=== PATIENT | female | born 1975 | race American Indian/Alaskan Native ===

== ENCOUNTER 2022-01-20 14:00 | Emergency (ER) | payer SELFPAY ==
--- NOTE | 2022-01-20 16:40 | Emergency Department Report ---
ED General Adult HPI - General Chief complaint: Dental/Oral Stated complaint: EAR/MOUTHACHE/CYST Time Seen by Provider: 01/20/22 15:26 Source: patient Mode of arrival: Ambulatory Limitations: No Limitations - History of Present Illness Initial comments: PT is a 47-year-old female with history of hypertension and chronic dental caries. Patient presents for dental and ear pain for 1 week states right lower jaw swelling x5 days. Patient states she went to urgent care center and was prescribed amoxicillin for dental abscess. Patient has not seen dentist patient denies fevers or chills. Does endorse 8/10 right lower jaw pain exacerbated by eating and chewing. There is no shortness of breath no wheezing or stridor. Pain radiates from right jaw to right ear. Patient denies mastoid tenderness. Patient drove self to ED patient is alert oriented x3 and ambulatory with steady gait. Today is the patient's birthday and advises she needs to be discharged home to go home and eat birthday cake. - Related Data Previous Rx's Medication Instructions Recorded Last Taken Type Acetaminophen [Acetaminophen TAB] 1,000 mg PO Q6HR PRN #30 tablet 01/20/22 Unknown Rx Clindamycin [Clindamycin CAP] 300 mg PO Q6H 7 Days #28 cap 01/20/22 Unknown Rx amLODIPine 10 mg PO DAILY #30 tab 01/20/22 Unknown Rx dexAMETHasone [Decadron] 4 mg PO BID 5 Days #10 tablet 01/20/22 Unknown Rx Allergies Allergy/AdvReac Type Severity Reaction Status Date / Time No Known Allergies Allergy Verified 01/20/22 17:20 ED Review of Systems ROS: Stated complaint: EAR/MOUTHACHE/CYST Other details as noted in HPI Constitutional: denies: chills, fever Eyes: denies: eye pain, eye discharge, vision change ENT: ear pain, dental pain. denies: throat pain Respiratory: denies: cough, shortness of breath, wheezing Cardiovascular: denies: chest pain, palpitations Endocrine: no symptoms reported Gastrointestinal: denies: abdominal pain, nausea, vomiting, diarrhea Genitourinary: denies: urgency, dysuria, discharge Musculoskeletal: denies: back pain, joint swelling, arthralgia Skin: denies: rash, lesions Neurological: denies: headache, weakness, paresthesias, vertigo Psychiatric: as per HPI Hematological/Lymphatic: denies: easy bleeding, easy bruising ED Past Medical Hx - Past Medical History Hx Hypertension: Yes Hx Diabetes: Yes - Surgical History Past Surgical History?: No - Social History Smoking Status: Never Smoker - Medications Home Medications: Home Medications Medication Instructions Recorded Confirmed Last Taken Type Acetaminophen [Acetaminophen TAB] 1,000 mg PO Q6HR PRN #30 tablet 01/20/22 Unknown Rx Clindamycin [Clindamycin CAP] 300 mg PO Q6H 7 Days #28 cap 01/20/22 Unknown Rx amLODIPine 10 mg PO DAILY #30 tab 01/20/22 Unknown Rx dexAMETHasone [Decadron] 4 mg PO BID 5 Days #10 tablet 01/20/22 Unknown Rx ED Physical Exam - General Limitations: No Limitations General appearance: alert, in no apparent distress - Head Head exam: Present: normocephalic, normal inspection - Eye Eye exam: Present: PERRL, EOMI Pupils: Present: normal accommodation - ENT ENT exam: Present: mucous membranes moist, TM's normal bilaterally, normal external ear exam - Expanded ENT Exam Expanded Ear exam: Present: normal external inspection Mouth exam: Present: drooling, tongue normal (Mild tongue swelling no erythema no drainage). Absent: trismus, muffled voice, tongue elevation, laceration Teeth exam: Present: dental caries, dental tenderness # (Right elbow 30 mild gum swelling no focal abscess no focal erythema) Throat exam: Positive: tonsillar erythema, other (Uvula midline no lesions no exudate). Negative: tonsillomegaly, tonsillar exudate, R peritonsillar mass, L peritonsillar mass - Neck Neck exam: Present: tenderness, full ROM, lymphadenopathy (Right submandibular and anterior auricle lymph). Absent: meningismus, thyromegaly - Expanded Neck Exam Expanded Neck exam: Present: tenderness (As above). Absent: midline deformity, thyroid mass, carotid bruit, tracheal deviation - Respiratory Respiratory exam: Present: normal lung sounds bilaterally, chest wall tenderne ss. Absent: wheezes, stridor - Cardiovascular Cardiovascular Exam: Present: regular rate, normal rhythm, normal heart sounds. Absent: systolic murmur, diastolic murmur, rubs, gallop - GI/Abdominal GI/Abdominal exam: Present: soft, normal bowel sounds. Absent: distended, tenderness - Rectal Rectal exam: Present: deferred - Extremities Exam Extremities exam: Present: normal inspection, full ROM, normal capillary refill - Back Exam Back exam: Present: normal inspection, full ROM - Neurological Exam Neurological exam: Present: alert, oriented X3, CN II-XII intact - Expanded Neurological Exam Expanded Patient oriented to: Present: person, place, time Speech: Present: fluid speech Cranial nerves: Tongue Deviation: Normal, Facial Sensation: Normal Best Eye Response ([place]): (4) open spontaneously Best Motor Response ([place]): (6) obeys commands Best Verbal Response ([place]): (5) oriented [place] Total: 15 - Psychiatric Psychiatric exam: Present: normal affect, normal mood - Skin Skin exam: Present: warm, dry, intact, normal color. Absent: rash ED Course Vital Signs 01/20/22 01/20/22 15:12 18:29 Temperature 98.5 F Pulse Rate 88 100 H Respiratory 20 Rate Blood Pressure 219/136 228/115 O2 Sat by Pulse 97 Oximetry ED Medical Decision Making - Lab Data Result diagrams: 01/20/22 16:38 01/20/22 16:38 - Radiology Data Radiology results: report reviewed, image reviewed CT NECK WITHOUT CONTRAST HISTORY: Swelling in the face COMPARISON: None. TECHNIQUE: Routine CT of the neck is performed without intravenous contrast. All CT scans at this location are performed using CT dose reduction for ALARA by means of automated exposure control CONTRAST: None FINDINGS: Salivary glands: Submandibular glands: Right submandibular gland is markedly enlarged; 2 large calculi measuring 14 mm and 8 mm near the hilum of the right submandibular gland; smaller calculus measuring 5 mm in the submandibular gland; calculus in the right Warthin's duct measuring 5 mm; left submandibular gland: No radiopaque calculi; however, the hilum, approximately a centimeter sized low attenuation area Parotid glands: Both parotid glands appear normal in this nonenhanced scan Sublingual space: Normal Oral cavity to the right submandibular gland is enlarged, there is suggestion of larger mass effect. Enlarged soft tissue straddling the glossal tonsillar sulcus; right faucial tonsil appears prominent Skull Base: No significant abnormality. Carotid, Retropharyngeal, Prevertebral, Pharyngeal Mucosal, and Tactical Air Control Party Spaces: No abnormal mass, enhancing lesion or other significant abnormality. Airway: Displaced towards the left side in the lower cavity but patent Lymphatics: Difficulty evaluate in this nonenhanced series; however, level 2 enlarged lymph nodes bilaterally probably reactive nodes Vasculature: No significant abnormality. Osseous Structures: Post postsurgical changes in the mandible bilaterally with corrective osteotomies Additional findings: None. IMPRESSION: Right submandibular gland is markedly enlarged due to large calculi; right Warthin's duct calculus There appears to be larger mass effect in the oral cavity with soft tissue straddling the right glossal tympanic sulcus with enlarged right faucial tonsil; this has to be evaluated further with contrast enhanced CT scan Signer Name: Tara Bradford MD Signed: 01/20/2022 8:25 PM Workstation Name: [id number] Transcribed By: BS Dictated By: Tara Garcia MD Electronically Authenticated By: Tara Garcia MD Signed Date/Time: 01/20/222024 DD/ 14 TD/TT: - Medical Decision Making PT is a 47-year-old female with history of hypertension and chronic dental caries. Patient presents for dental and ear pain for 1 week states right lower jaw swelling x5 days. Patient states she went to urgent care center and was prescribed amoxicillin for dental abscess. Patient has not seen dentist patient denies fevers or chills. Does endorse 8/10 right lower jaw pain exacerbated by eating and chewing. There is no shortness of breath no wheezing or stridor. Pain radiates from right jaw to right ear. Patient denies mastoid tenderness. Patient drove self to ED patient is alert oriented x3 and ambulatory with steady gait. Today is the patient's birthday and advises she needs to be discharged home to go home and eat birthday cake. BP is improved, there is no headache, no dizziness, no lightheadedness, no shortness of breath, no chest pain, patient is alert oriented x3 and with no acute distress patient is ambulatory with steady gait. Labs noted above, hypertension is chronic in this patient as well as elevated creatinine per patient. Patient is voiding without difficulty. Patient has primary care who is managing hypertension. CT scan soft tissue neck pending. Patient treated with Clindamycin IV piggyback, Decadron, and hydralazine. Patient will be DC'd to home with BP prescription for amlodipine, clindamycin, Decadron, Tylenol as n eeded pain, patient will follow-up with ear nose and throat doctor in 2 days, dentist in 2 days, primary care for blood pressure management as scheduled. There are no fevers no chills no nausea vomiting patient is tolerating p.o. intake. Patient verbalized agreement and understanding with discharge plan. Patient care is signed out to RM colleague will follow CT Soft tissue neck and dispo patient after result. Patient verbalized agreement and understanding with same. Patient advises that she will not even discuss possibility of ENT consult or admission as she is going home and will follow-up outpatient if necessary. Critical care attestation.: If time is entered above; I have spent that time in minutes in the direct care of this critically ill patient, excluding procedure time. ED Disposition Clinical Impression: Sialadenitis, Neck pain Disposition: HOME / SELF CARE / HOMELESS Is pt being admited?: No Does the pt Need Aspirin: No Condition: Stable Instructions: Salivary Gland Infection, Dental Abscess Additional Instructions: Take medications as prescribed, use hard candy, lemon juice or lemon glycerin swabs as directed., follow-up with your dentist as scheduled. Follow-up with ear nose and throat doctor in 2 to 3 days. Return to emergency department should symptoms worsen. Prescriptions: Acetaminophen [Acetaminophen TAB] 1,000 mg PO Q6HR PRN #30 tablet PRN Reason: pain amLODIPine 10 mg PO DAILY #30 tab Clindamycin [Clindamycin CAP] 300 mg PO Q6H 7 Days #28 cap dexAMETHasone [Decadron] 4 mg PO BID 5 Days #10 tablet Referrals: [facility] [Outside] - 3-5 Days FELIPE MERAZ MD [Referring] - 2-3 Days JENNIFER HUITRON MD [Staff Physician] - 3-5 Days Forms: Work/School Release Form(ED)
[2022-01-20 16:58] LABS: Basophils # (Auto) 0.1 K/mm3 (0.0-0.1); Basophils % (Auto) 0.6 % (0.0-1.8); Eosinophils # (Auto) 0.1 K/mm3 (0.0-0.4); Eosinophils % (Auto) 0.8 % (0.0-4.3); Hematocrit 41.8 % (30.3-42.9); Hemoglobin 13.7 gm/dl (10.1-14.3); Lymphocytes # (Auto) 1.1 K/mm3 (1.2-5.4); Lymphocytes % (Auto) 7.3 % (13.4-35.0); Mean Corpuscular HGB Conc 33 % (30-34); Mean Corpuscular Volume 88 fl (79-97); Monocytes % (Auto) 6.8 % (0.0-7.3); Platelet Count 210 K/mm3 (140-440); Red Blood Count 4.73 M/mm3 (3.65-5.03); Red Cell Distribution Width 14.1 % (13.2-15.2)
[2022-01-20 17:30] LABS: Albumin 4.3 g/dL (3.9-5); Calcium 10.4 mg/dL (8.4-10.2)
[2022-01-20] MEDS ORDERED: SODIUM CHLORIDE 0.9% 1000 ML 1,000 ML IV ONE (17:42)
[2022-01-20] MEDS: dexAMETHasone 20 MG/5 ML VIAL IV ONE (18:02)
[2022-01-20] MEDS ORDERED: hydrALAZINE 25 MG TAB PO ONE (18:20)
[2022-01-20 18:30] VITALS: BP 228/115
--- NOTE | 2022-01-20 20:30 | Cat Scan Report ---
CT NECK WITHOUT CONTRAST HISTORY: Swelling in the face COMPARISON: None. TECHNIQUE: Routine CT of the neck is performed without intravenous contrast. All CT scans at [facility] are performed using CT dose reduction for ALARA by means of automated exposure control CONTRAST: None FINDINGS: Salivary glands: Submandibular glands: Right submandibular gland is markedly enlarged; 2 large calculi measuring 14 mm and 8 mm near the hilum of the right submandibular gland; smaller calculus measuring 5 mm in the sub mandibular gland; calculus in the right Warthin's duct measuring 5 mm; left submandibular gland: No r adiopaque calculi; however, the hilum, approximately a centimeter sized low attenuation area Parotid glands: Both parotid glands appear normal in this nonenhanced scan Sublingual space: Normal Oral cavity to the right submandibular gland is enlarged, there is suggestion of larger mass effect. Enlarged soft tissue straddling the glossal tonsillar sulcus; right faucial tonsil appears prominent Skull Base: No significant abnormality. Carotid, Retropharyngeal, Prevertebral, Pharyngeal Mucosal, and Leaf Coverer Spaces: No abnormal mass, enhancing lesion or other significant abnormality. Airway: Displaced towards the left side in the lower cavity but patent Lymphatics: Difficulty evaluate in this nonenhanced series; however, level 2 enlarged lymph nodes alexandra aterally probably reactive nodes Vasculature: No significant abnormality. Osseous Structures: Post postsurgical changes in the mandible bilaterally with corrective osteotomies Additional findings: None. IMPRESSION: Right submandibular gland is markedly enlarged due to large calculi; right Warthin's duct calculus There appears to be larger mass effect in the oral cavity with soft tissue straddling the right glos esme tympanic sulcus with enlarged right faucial tonsil; this has to be evaluated further with contras t enhanced CT scan Signer Name: Tara Bradford MD Signed: 01/20/2022 8:25 PM Workstation Name: [id number]
--- NOTE | 2022-01-20 20:53 | Emergency Department Report ---
HPI - General Chief Complaint: Dental/Oral Time Seen by Provider: 01/20/22 15:26 ED Past Medical Hx - Past Medical History Hx Hypertension: Yes Hx Diabetes: Yes - Surgical History Past Surgical History?: No - Social History Smoking Status: Never Smoker - Medications Home Medications: Home Medications Medication Instructions Recorded Confirmed Last Taken Type Acetaminophen [Acetaminophen TAB] 1,000 mg PO Q6HR PRN #30 tablet 01/20/22 Unknown Rx Clindamycin [Clindamycin CAP] 300 mg PO Q6H 7 Days #28 cap 01/20/22 Unknown Rx amLODIPine 10 mg PO DAILY #30 tab 01/20/22 Unknown Rx dexAMETHasone [Decadron] 4 mg PO BID 5 Days #10 tablet 01/20/22 Unknown Rx ED Review of Systems ROS: Stated complaint: EAR/MOUTHACHE/CYST Other details as noted in HPI Constitutional: denies: chills, fever Eyes: denies: eye pain, eye discharge, vision change ENT: ear pain, dental pain. denies: throat pain Respiratory: denies: cough, shortness of breath, wheezing Cardiovascular: denies: chest pain, palpitations Endocrine: no symptoms reported Gastrointestinal: denies: abdominal pain, nausea, vomiting, diarrhea Genitourinary: denies: urgency, dysuria, discharge Musculoskeletal: denies: back pain, joint swelling, arthralgia Skin: denies: rash, lesions Neurological: denies: headache, weakness, paresthesias, vertigo Psychiatric: as per HPI Hematological/Lymphatic: denies: easy bleeding, easy bruising Physical Exam - Physical Exam Vital Signs: Vital Signs 01/20/22 01/20/22 15:12 18:29 Temperature 98.5 F Pulse Rate 88 100 H Respiratory 20 Rate Blood Pressure 219/136 228/115 O2 Sat by Pulse 97 Oximetry ED Course Vital Signs 01/20/22 01/20/22 15:12 18:29 Temperature 98.5 F Pulse Rate 88 100 H Respiratory 20 Rate Blood Pressure 219/136 228/115 O2 Sat by Pulse 97 Oximetry ED Medical Decision Making - Lab Data Result diagrams: 01/20/22 16:38 01/20/22 16:38 - Radiology Data [facility] [address] [place] [address] Cat Scan Report Signed Patient: BENITA FERNANDEZ MR#: [id number] : 1975 Acct:[id number] Age/Sex: 47 / F ADM Date: 01/20/22 Loc: ED Attending Dr: Ordering Physician: GUMARO MEJIA NP Date of Service: 01/20/22 Procedure(s): CT neck wo con Accession Number(s): [id number] cc: GUMARO MEJIA NP CT NECK WITHOUT CONTRAST HISTORY: Swelling in the face COMPARISON: None. TECHNIQUE: Routine CT of the neck is performed without intravenous contrast. All CT scans at this location are performed using CT dose reduction for ALARA by means of automated exposure control CONTRAST: None FINDINGS: Salivary glands: Submandibular glands: Right submandibular gland is markedly enlarged; 2 large calculi measuring 14 mm and 8 mm near the hilum of the right submandibular gland; smaller calculus measuring 5 mm in the submandibular gland; calculus in the right Warthin's duct measuring 5 mm; left submandibular gland: No radiopaque calculi; however, the hilum, approximately a centimeter sized low attenuation area Parotid glands: Both parotid glands appear normal in this nonenhanced scan Sublingual space: Normal Oral cavity to the right submandibular gland is enlarged, there is suggestion of larger mass effect. Enlarged soft tissue straddling the glossal tonsillar sulcus; right faucial tonsil appears prominent Skull Base: No significant abnormality. Carotid, Retropharyngeal, Prevertebral, Pharyngeal Mucosal, and Recyclable Products Sorter Spaces: No abnormal mass, enhancing lesion or other significant abnormality. Airway: Displaced towards the left side in the lower cavity but patent Lymphatics: Difficulty evaluate in this nonenhanced series; however, level 2 enlarged lymph nodes bilaterally probably reactive nodes Vasculature: No significant abnormality. Osseous Structures: Post postsurgical changes in the mandible bilaterally with corrective osteotomies Additional findings: None. IMPRESSION: Right submandibular gland is markedly enlarged due to large calculi; right Warthin's duct calculus There appears to be larger mass effect in the oral cavity with soft tissue st raddling the right glossal tympanic sulcus with enlarged right faucial tonsil; this has to be evalu ated further with contrast enhanced CT scan Signer Name: Tara Bradford MD Signed: 01/20/2022 8:25 PM Workstation Name: [id number] Transcribed By: DESTINEE Dictated By: Tara Garcia MD Electronically Authenticated By: Tara Garcia MD Signed Date/Time: 01/20/222024 DD/ 14 TD/TT: - Medical Decision Making Disposition for patient. CT results - Right submandibular gland is markedly enlarged due to large c alculi; right Warthin's duct calculus There appears to be larger mass effect in the oral cavity with soft tissue straddling the right glossal tympanic sulcus with enlarged right faucial tonsil; this has to be evaluated further with contrast enhanced CT scan. Patient states that she does not want to stay for repeat CT scan with contrast patient states that she was just follow-up outpatient and reported to the ER symptoms get worse. Patient has been evaluated by initial RM and plan of care has been given to the patient already. Patient has been educated extensively on the importance of following up if symptoms not to get worse and to take her medications as directed. Patient verbalizes her understanding and agrees with plan of care. Patient has been sent home with oral medications for antibiotics as initial provider has prescribed. See initial provider note for further details of case. Critical care attestation.: If time is entered above; I have spent that time in minutes in the direct care of this critically ill patient, excluding procedure time. ED Disposition Clinical Impression: Neck pain Disposition: 01 HOME / SELF CARE / HOMELESS Is pt being admited?: No Condition: Stable Instructions: Salivary Gland Infection, Dental Abscess Additional Instructions: Take medications as prescribed, use hard candy, lemon juice or lemon glycerin swabs as directed., follow-up with your dentist as scheduled. Follow-up with ear nose and throat doctor in 2 to 3 days. Return to emergency department should symptoms worsen. Prescriptions: Acetaminophen [Acetaminophen TAB] 1,000 mg PO Q6HR PRN #30 tablet PRN Reason: pain amLODIPine 10 mg PO DAILY #30 tab Clindamycin [Clindamycin CAP] 300 mg PO Q6H 7 Days #28 cap dexAMETHasone [Decadron] 4 mg PO BID 5 Days #10 tablet Referrals: [facility] [Outside] - 3-5 Days JENNIFER HUITRON MD [Staff Physician] - 3-5 Days FELIPE MERAZ MD [Referring] - 2-3 Days Forms: Work/School Release Form(ED) Time of Disposition: 20:53
--- NOTE | 2022-01-22 08:27 | Electrocardiograph Report ---
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
== END 2022-01-20 22:00 | disposition home or self-care (01) ==
LOC: ED 14:00
DX: K11.20 Sialoadenitis, unspecified (principal); M54.2 Cervicalgia; I10 Essential (primary) hypertension; E11.9 Type 2 diabetes mellitus without complications
CPT/HCPCS: 36415; 70490; 80053; 85025; 93005; 96365; 96375; 99284; J1100; J7030; J7502